=== PATIENT | male | born 1990 | race Two or more races ===

== ENCOUNTER 2018-01-18 08:54 | Emergency (ER) | payer OTHER ==
[~2018-01-18] VITALS: Ht 162.6 cm; Wt 68.0 kg
== END 2018-01-18 11:21 | disposition home or self-care (01) ==
LOC: ER 08:54
DX: S90.111A Contusion of right great toe without damage to nail, initial encounter (principal); W21.09XA Struck by other hit or thrown ball, initial encounter; Y93.54 Activity, bowling; Y92.39 Other specified sports and athletic area as the place of occurrence of the external cause; Y99.8 Other external cause status

== ENCOUNTER 2018-01-24 14:17 | Outpatient (CLI) | payer OTHER | END 2018-01-24 16:07 | disposition home or self-care (01) | LOC: RAD 14:17 | DX: S92.424A Nondisplaced fracture of distal phalanx of right great toe, initial encounter for closed fracture (principal) ==